=== PATIENT | female | born 1990 | race African-American/Black ===

== ENCOUNTER 2019-07-13 16:55 | Emergency (ER) | payer SELFPAY ==
[~2019-07-13] VITALS: Ht 175.3 cm; Wt 117.9 kg
[~2019-07-13 16:55] MED LIST: ALBUTEROL SULF8.5 GM INH; AMOXICILLIN500 MG; AZITHROMYCIN250 MG ORAL; BACTRIM DS TAB1 EAC1 ORAL; IBUPROFEN800 M1 PO; IBUPROFEN800 MG ORAL; PREDNISONE20 MG ORAL
--- NOTE | 2019-07-13 17:00 | Emergency Room Report ---
History of Present Illness General Chief Complaint: To Be Triaged Present Illness HPI 29-year-old female with no symptom past medical history and past surgical history of tonsillectomy and adenoidectomy here complaining of 4 days of a 10 out of 10 sore throat and white buildup on tongue. Denies any fever and chills , cough and congestion, shortness of breath. Reports that she vapes and she smokes. Obvious oral thrush noted in pharynx and on tongue. Denies abdominal pain, nausea vomiting diarrhea. Has been staying home this whole time. Denies . Allergies: Coded Allergies: No Known Allergies (Unverified , 08/20/13) Patient History Past Medical History: see triage record Past Surgical History: none Pertinent Family History: none Now: No Immunizations: UTD Reviewed Nursing Documentation: PMH: Agreed; PSxH: Agreed Nursing Documentation-PMH Hx Cancer: No Hx Gastrointestinal Problems: No Hx Neurological Problems: No Review of Systems All Other Systems: negative except mentioned in HPI Physical Exam Sp02 EP Interpretation: reviewed, normal General Appearance: no apparent distress, alert, GCS 15, non-toxic Head: normocephalic, atraumatic Eyes: bilateral eye normal inspection, bilateral eye PERRL ENT: pharyngeal erythema, other - Oral thrush Neck: full range of motion, supple Respiratory: chest non-tender, lungs clear, normal breath sounds, no rhonchi Cardiovascular #1: regular rate, rhythm, no edema Gastrointestinal: non tender, soft Genitourinary: no CVA tenderness Musculoskeletal: back normal Neurologic: alert, oriented Psychiatric: normal inspection Skin: no rash Lymphatic: no adenopathy Medical Decision Making PA Attestation All diagnoses and treatment plans were reviewed and discussed with my supervising physician Dr. Guzman Diagnostic Impression: Primary Impression: Candidiasis of mouth Additional Impressions: Oral thrush Strep pharyngitis ER Course 29-year-old female with no symptom past medical history and past surgical history of tonsillectomy and adenoidectomy here complaining of 4 days of a 10 out of 10 sore throat and white buildup on tongue. Denies any fever and chills , cough and congestion, shortness of breath. Reports that she vapes and she smokes. Obvious oral thrush noted in pharynx and on tongue. Denies abdominal pain, nausea vomiting diarrhea. Has been staying home this whole time. Denies . Ddx considered but are not limited to: strep pharyngitis, URI, tonsillitis, peritonsillar abscess, influneza Vital signs: are WNL, pt. is afebrile H&PE are most consistent with: Strep pharyngitis, oral thrush due to [place] ORDERS: Augmentin, fluconazole, nystatin oral mouthwash ED INTERVENTIONS: None required at this time. DISCHARGE: At this time pt. is stable for d/c to home. Will provide printed patient care instructions, and any necessary prescriptions. Care plan and follow up instructions have been discussed with the patient prior to discharge. Avoid smoking and vaping, take medication as directed, follow primary doctor, if worsening symptoms return to emergency room Disposition: HOME, SELF-CARE Condition: Stable Scripts Nystatin* (NYSTATIN*) 100,000 Unit/1 Ml Oral.susp 5 ML ORAL FOUR TIMES A DAY, #100 ML Swish in the mouth and retain for as long as possible (several minutes) before swallowing Prov: Kamilah Porter 07/13/19 Amoxicillin/Potassium Clav 875-125* (AUGMENTIN 875-125 TABLET*) 1 Each Tablet 1 TAB ORAL TWICE A DAY for 7 Days, #14 TAB Prov: Kamilah Porter 07/13/19 Fluconazole (FLUCONAZOLE) 100 Mg Tablet 100 MG ORAL DAILY for 7 Days, #7 TAB 0 Refills Prov: Kamilah Porter 07/13/19 Patient Instructions: Pharyngitis, [id number], Stomatitis, [id number] Additional Instructions: Take medication as directed, follow with primary doctor, wearing street things, avoid vaping and smoking, if worsening symptoms return to the emergency room Kamilah Porter July 13, 2019 17:00
[2019-07-13] MEDS ORDERED: FLUCONAZOLE100 MG ORAL (17:01)
[2019-07-13] MEDS ORDERED: AUGMENTIN 875-1 EAC1 ORAL (17:01)
[2019-07-13] MEDS ORDERED: NYSTATIN100000 UN1 ORAL (17:01)
[2019-07-13 17:05] VITALS: BP 160/90
--- NOTE | 2019-07-13 17:07 | NUR ---
ED Nurse Note: Patient walked in to ER c/o sore throat x 4 days. Patient AAO x4, VSS at this time.
[2019-07-13 17:10] VITALS: BP 160/90
--- NOTE | 2019-07-13 17:13 | NUR ---
ED Nurse Note: Pt cleared by health care Provider for discharge. DC instructions/prescription was given and explained to pt and verbalized understanding of teachings. All medical deviecs such as ID band removed. Pt is AAO x4, ambulatory and left with all personal belongings.
== END 2019-07-13 17:10 | disposition home or self-care (01) ==
LOC: EMR 17:10
DX: B37.0 Candidal stomatitis (principal); J02.0 Streptococcal pharyngitis
CPT/HCPCS: 99282